=== PATIENT | female | born 1995 | race African-American/Black ===

== ENCOUNTER 2016-09-04 16:35 | Emergency (ER) | payer SELFPAY ==
[2016-09-04 16:40] VITALS: BP 134/71
[2016-09-04 18:47] LABS: APPEARANCE,URINE TURBID; BILIRUBIN,URINE NEGATIVE (NEGATIVE); GLUCOSE, URINE NEGATIVE (NEGATIVE); KETONES,URINE NEGATIVE (NEGATIVE); LEUKOCYTE ESTERASE,URINE NEGATIVE (NEGATIVE); NITRITE,URINE NEGATIVE (NEGATIVE); PROTEIN,URINE NEGATIVE (NEGATIVE); URINE SPECIFIC GRAVITY 1.018; UROBILINOGEN,URINE NEGATIVE mg/dL (<2.0)
--- NOTE | 2016-09-04 19:17 | ER Document Report ---
ED General - General Chief Complaint: Flank Pain Stated Complaint: FLANK PAIN Time Seen by Provider: 09/04/16 17:58 Notes: Patient is a 21-year-old female with chronic left lower adnexal discomfort that is been present ever since she apparently had to have ovarian surgery several years ago who presents with an acute exacerbation of her abdominal pain. States that she was at work and developed a severe, constant, stabbing pain to the affected left lower quadrant. The pain has now resolved and she no longer has any discomfort or concerns. States this feels very similar to prior episodes of similar attacks. She has not seen a primary care doctor followed up with MEDICAL EQUIPMENT TECHNICIAN regarding this recurrent, chronic pain. Any nausea, vomiting or fever. No vaginal bleeding or discharge. No dysuria. TRAVEL OUTSIDE OF THE [place] IN LAST 30 DAYS: No - Related Data Allergies/Adverse Reactions: No Known Allergies Allergy (Verified 12/29/15 14:25) Past Medical History - General Information source: Patient - Social History Smoking Status: Never Smoker Chew tobacco use (# tins/day): No Frequency of alcohol use: None Drug Abuse: None Lives with: Family Family History: Reviewed & Not Pertinent Patient has suicidal ideation: No Patient has homicidal ideation: No Renal/ Medical History: Denies: Hx Peritoneal Dialysis Surgical Hx: Negative - Immunizations Hx Diphtheria, Pertussis, Tetanus Vaccination: Yes Review of Systems - Review of Systems Notes: Constitutional: Negative for fever. HENT: Negative for sore throat. Eyes: Negative for visual changes. Cardiovascular: Negative for chest pain. Respiratory: Negative for shortness of breath. Gastrointestinal: Positive for lower abdominal pain now resolved Genitourinary: Negative for dysuria. Musculoskeletal: Negative for back pain. Skin: Negative for rash. Neurological: Negative for headaches, weakness or numbness. 10 point ROS negative except as marked above and in HPI. Physical Exam - Vital signs Vitals: Temp Pulse Resp BP Pulse Ox 98.7 F 79 20 134/71 H 99 09/04/16 16:38 09/04/16 16:38 09/04/16 16:38 09/04/16 16:38 09/04/16 16:38 Interpretation: Normal Notes: PHYSICAL EXAMINATION: GENERAL: Well-appearing, well-nourished and in no acute distress. HEAD: Atraumatic, normocephalic. EYES: Pupils equal round and reactive to light, extraocular movements intact, sclera anicteric, conjunctiva are normal. ENT: nares patent, oropharynx clear without exudates. Moist mucous membranes. NECK: Normal range of motion, supple without lymphadenopathy LUNGS: Breath sounds clear to auscultation bilaterally and equal. No wheezes rales or rhonchi. HEART: Regular rate and rhythm without murmurs ABDOMEN: Soft, nontender, normoactive bowel sounds. No guarding, no rebound. No masses appreciated. EXTREMITIES: Normal range of motion, no pitting or edema. No cyanosis. NEUROLOGICAL: No focal neurological deficits. Moves all extremities spontaneously and on command. PSYCH: Normal mood, normal affect. SKIN: Warm, Dry, normal turgor, no rashes or lesions noted. Course - Re-evaluation Re-evalutation: 09/04/16 19:14 Patient presents with 2 years of chronic left adnexal and lower abdominal discomfort now resolved. Patient reports that she has intermittent pain in this region approximately 4-5 times daily and this is been unchanged for the last several years. States that she had an episode of pain that was more intense than normal today which prompted to come to the emergency department but has now resolved. Patient is ready had a transvaginal ultrasound as well as a CT scan of her abdomen pelvis with the last 14 months for this complaint. Her abdominal exam at this time is completely benign. She denies any vaginal bleeding or discharge. She is not and the urinalysis is unremarkable. Prior imaging studies have been unremarkable without evidence of acute pathology beyond ovarian cyst identified on the left ovary. I discussed at length with the patient the importance of LIVESTOCK NUTRITION TERRITORY MANAGER follow-up given that this is now a chronic adnexal and lower abdominal pain. I do not believe there is any indication for further abdominal imaging at this time that do not suspect an acute ovarian torsion, tubo-ovarian abscess, acute appendicitis, bowel obstruction, bowel perforation, mesenteric ischemia, acute biliary pathology, acute pancreatitis based on exam clinical history and vitals. Patient is agreeable with need for close follow-up with LIVESTOCK NUTRITION TERRITORY MANAGER. At this time will discharge with return precautions and follow-up recommendations. Verbal discharge instructions given a the bedside and opportunity for questions given. Medication warnings reviewed. Patient is in agreement with this plan and has verbalized understanding of return precautions and the need for primary care follow-up in the next 24-72 hours. - Vital Signs Vital signs: Temp Pulse Resp BP Pulse Ox 98.7 F 79 20 134/71 H 99 09/04/16 16:38 09/04/16 16:38 09/04/16 16:38 09/04/16 16:38 09/04/16 16:38 Discharge - Discharge Clinical Impression: Abdominal pain, chronic, left lower quadrant Condition: Good Disposition: HOME, SELF-CARE Additional Instructions: Please follow-up with LIVESTOCK NUTRITION TERRITORY MANAGER regarding your chronic left lower abdominal pain. Please return if you have worsening of your pain, vomiting, fever greater than 101F, or any other symptoms that are worrisome to you. Forms: Return to Work
== END 2016-09-04 19:42 | disposition home or self-care (01) ==
LOC: ER 16:35
DX: G89.29 Other chronic pain (principal); R10.32 Left lower quadrant pain; Z98.890 Other specified postprocedural states; Z87.42 Personal history of other diseases of the female genital tract
CPT/HCPCS: 81001; 81025; 99284

== ENCOUNTER 2019-01-12 01:15 | Emergency (ER) | payer MEDICAID, OTHER ==
[2019-01-12] MEDS ORDERED: FENTANYL CITRATE INJ/PF 100 MCG/2 ML AMPUL IV ONE (02:07)
[2019-01-12] MEDS ORDERED: ONDANSETRON HCL INJ/PF 4 MG/2 ML SDV IV ONE (02:07)
--- NOTE | 2019-01-12 02:07 | ER Document Report ---
ED GI/ - General Chief Complaint: Lower Abdominal Pain Stated Complaint: LOWER ABDOMINAL PAIN Time Seen by Provider: 01/12/19 01:33 Primary Care Provider: GUME HERRERA MD [Primary Care Provider] - Follow up as needed LORIN TOMLINSON MD [ACTIVE STAFF] - Follow up as needed Notes: Patient is otherwise healthy 23-year-old female presents to the emergency department for left pelvic pain. Patient states she had left pelvic pain for approximately 24 hours. Patient also voices generalized nausea and one episode of diarrhea nonbloody. Patient's denying any vomiting or fever. States intermittent dysuria. Patient's denying any vaginal discharge. Patient takes no daily medications, has no allergies. TRAVEL OUTSIDE OF THE [place] IN LAST 30 DAYS: No - Related Data Allergies/Adverse Reactions: No Known Allergies Allergy (Verified 12/29/15 14:25) Past Medical History - General Information source: Patient - Social History Smoking Status: Never Smoker Family History: Reviewed & Not Pertinent Patient has suicidal ideation: No Patient has homicidal ideation: No Renal/ Medical History: Denies: Hx Peritoneal Dialysis - Immunizations Hx Diphtheria, Pertussis, Tetanus Vaccination: Yes Review of Systems - Review of Systems Constitutional: denies: Fever EENT: No symptoms reported Cardiovascular: No symptoms reported Respiratory: No symptoms reported Gastrointestinal: See HPI Genitourinary: See HPI Female Genitourinary: Last menstrual period - Unsure Musculoskeletal: No symptoms reported Skin: No symptoms reported Hematologic/Lymphatic: No symptoms reported Neurological/Psychological: No symptoms reported Physical Exam - Vital signs Vitals: Temp Pulse Resp BP Pulse Ox 98.2 F 58 L 16 132/81 H 97 01/12/19 01:23 01/12/19 01:23 01/12/19 01:23 01/12/19 01:23 01/12/19 01:23 - Notes Notes: GENERAL: Alert, interacts well. No acute distress. HEAD: Normocephalic, atraumatic. EYES: Pupils equal, round, and reactive to light. Extraocular movements intact. ENT: Oral mucosa moist, tongue midline. NECK: Full range of motion. Supple. Trachea midline. LUNGS: Clear to auscultation bilaterally, no wheezes, rales, or rhonchi. No respiratory distress. HEART: Regular rate and rhythm. No murmur ABDOMEN: Soft, Left pelvic pain noted, otherwise abdominal exam benign. Non- distended. Bowel sounds present in all 4 quadrants. EXTREMITIES: Moves all 4 extremities spontaneously. No edema, normal radial and dorsalis pedis pulses bilaterally. No cyanosis. BACK: no cervical, thoracic, lumbar midline tenderness. No saddle anesthesia, normal distal neurovascular exam. No CVA tenderness noted bilaterally. NEUROLOGICAL: Alert and oriented x3. Normal speech. Cranial nerves II through XII grossly intact PSYCH: Normal affect, normal mood. SKIN: Warm, dry, normal turgor. No rashes or lesions noted. Course - Re-evaluation Re-evalutation: 01/12/19 03:01 Laboratory 01/12/19 01/12/19 01/12/19 02:03 02:10 02:10 WBC 7.0 RBC 4.47 Hgb 14.2 Hct 42.6 MCV 95 MCH 31.8 MCHC 33.3 RDW 12.1 Plt Count 286 Lymph % (Auto) 44.1 [place] % (Auto) 9.5 Eos % (Auto) 1.4 Baso % (Auto) 0.9 Absolute Neuts (auto) 3.1 Absolute Lymphs (auto) 3.1 Absolute Monos (auto) 0.7 Absolute Eos (auto) 0.1 Absolute Basos (auto) 0.1 Seg Neutrophils % 44.1 Sodium 140.9 Potassium 4.8 Chloride 106 Carbon Dioxide 25 Anion Gap 10 BUN 16 Creatinine 0.82 Est GFR ( Amer) > 60 Est GFR (MDRD) Non-Af > 60 Glucose 95 Calcium 10.0 Total Bilirubin 0.8 Direct Bilirubin 0.1 Neonat Total Bilirubin Not Reportable Neonat Direct Bilirubin Not Reportable Neonat Indirect Bili Not Reportable AST 31 ALT 18 Alkaline Phosphatase 45 Total Protein 8.4 H Albumin 4.8 Urine Color YELLOW Urine Appearance CLEAR Urine pH 6.0 Ur Specific [place] 1.028 Urine Protein NEGATIVE Urine Glucose (UA) NEGATIVE Urine Ketones NEGATIVE Urine Blood NEGATIVE Urine Nitrite NEGATIVE Urine Bilirubin NEGATIVE Urine Urobilinogen 2.0 H Ur Leukocyte Esterase NEGATIVE Urine WBC (Auto) 1 Urine RBC (Auto) 3 Squamous Epi Cells Auto 1 Urine Mucus (Auto) MOD Urine Ascorbic Acid 40 H Urine HCG, Qual NEGATIVE Transvaginal US 01/12/19 02:02 IMPRESSION: 3.4 cm likely hemorrhagic cyst in the left ovary. No follow-up imaging is recommended. Reference: Radiology 2010 Nov;256(3):943-54 Upon repeat assessment patient is sleeping, easily arousable to verbal stimuli. Patient voices she no longer has any pain. I discussed with patient diagnosis of left ovarian cyst. Have also discussed following up with CLASSIFIED COPY CONTROL CLERK and primary care doctor. Patient remains hemodynamically stable, stable for discharge. - Vital Signs Vital signs: Temp Pulse Resp BP Pulse Ox 98.2 F 58 L 16 132/81 H 97 01/12/19 01:23 01/12/19 01:23 01/12/19 01:23 01/12/19 01:23 01/12/19 01:23 - Laboratory Result Diagrams: 01/12/19 02:10 01/12/19 02:10 Laboratory results interpreted by me: 01/12/19 01/12/19 02:03 02:10 Total Protein 8.4 H Urine Urobilinogen 2.0 H Urine Ascorbic Acid 40 H Discharge - Discharge Clinical Impression: Ovarian cyst Qualifiers: Laterality: left Qualified Code(s): N83.202 - Unspecified ovarian cyst, left side Condition: Stable Disposition: HOME, SELF-CARE Instructions: Ovarian Cyst ([facility]) Additional Instructions: As we discussed you have been seen and treated in the emergency department for an ovarian cyst. Please make sure he follow-up with your primary care provider and CLASSIFIED COPY CONTROL CLERK in the next 12 to 24 hours. Phone numbers for an CLASSIFIED COPY CONTROL CLERK provider in our area will be in this packet. Please return to the emergency room for any concerns. Forms: Return to Work Referrals: GUME HERRERA MD [Primary Care Provider] - Follow up as needed LORIN TOMLINSON MD [ACTIVE STAFF] - Follow up as needed
[2019-01-12 02:29] LABS: ABSOLUTE BASOPHILS # (AUTO) 0.1 10^3/uL (0.0-0.2); ABSOLUTE EOSINOPHILS # (AUTO) 0.1 10^3/uL (0.0-0.6); ABSOLUTE LYMPHOCYTES (AUTO) 3.1 10^3/uL (0.5-4.7); ABSOLUTE MONOCYTES (AUTO) 0.7 10^3/uL (0.1-1.4); ABSOLUTE NEUT (AUTO) 3.1 10^3/uL (1.7-8.2); BASOPHILS % (AUTO) 0.9 % (0-2); EOSINOPHILS % (AUTO) 1.4 % (0-6); HEMATOCRIT 42.6 % (36.0-47.0); HEMOGLOBIN 14.2 g/dL (12.0-15.5); LYMPHOCYTES % (AUTO) 44.1 % (13-45); MEAN CORPUSCULAR HEMOGLOBIN 31.8 pg (27.0-33.4); MEAN CORPUSCULAR HGB CONC 33.3 g/dL (32.0-36.0); MEAN CORPUSCULAR VOLUME 95 fl (80-97); MONOCYTES % (AUTO) 9.5 % (3-13); PLATELET COUNT 286 10^3/uL (150-450); RED BLOOD COUNT 4.47 10^6/uL (3.72-5.28); RED CELL DISTRIBUTION WIDTH 12.1 % (11.5-14.0); SEGMENTED NEUTROPHILS % (AUTO) 44.1 % (42-78); TOTAL CELLS COUNTED % (AUTO) 100 %
[2019-01-12 02:36] LABS: ALBUMIN 4.8 g/dL (3.5-5.0); ALKALINE PHOSPHATASE 45 U/L (38-126); ANION GAP 10 (5-19); ASPARTATE AMINO TRANSFERASE 31 U/L (14-36); BILIRUBIN,DIRECT 0.1 mg/dL (0.0-0.4); BILIRUBIN,TOTAL 0.8 mg/dL (0.2-1.3); BLOOD UREA NITROGEN 16 mg/dL (7-20); CARBON DIOXIDE 25 mmol/L (22-30); CHLORIDE 106 mmol/L (98-107); GLUCOSE 95 mg/dL (75-110); POTASSIUM 4.8 mmol/L (3.6-5.0); TOTAL PROTEIN 8.4 g/dL (6.3-8.2)
[2019-01-12 02:55] LABS: APPEARANCE,URINE CLEAR; BILIRUBIN,URINE NEGATIVE (NEGATIVE); COLOR,URINE YELLOW; GLUCOSE, URINE NEGATIVE (NEGATIVE); KETONES,URINE NEGATIVE (NEGATIVE); LEUKOCYTE ESTERASE,URINE NEGATIVE (NEGATIVE); NITRITE,URINE NEGATIVE (NEGATIVE); PROTEIN,URINE NEGATIVE (NEGATIVE); URINE SPECIFIC GRAVITY 1.028
--- NOTE | 2019-01-12 02:57 | RADIOLOGY REPORT (SQ) ---
US PELVIS EXAM DATE: 01/12/2019 2:02 AM CDT HISTORY: Left-sided pelvic pain. COMPARISON: Ultrasound dated 07/08/2015. TECHNIQUE: Grayscale, color Doppler, and spectral Doppler ultrasound images of the pelvis were obtained. FINDINGS: The uterus is anteverted and measures 7.4 x 4.1 x 3.4 cm. The endometrium is 4 mm in thickness. The cervix is 3 cm in length and contains a small amount of fluid. Both ovaries are normal in size and contain normal follicles, with the right ovary measuring 3.1 cm, and the left ovary measuring 4.6 cm. There is a 3.4 cm likely hemorrhagic cyst in the left ovary. Normal color Doppler blood flow is seen in both ovaries. No pelvic free fluid. IMPRESSION: 3.4 cm likely hemorrhagic cyst in the left ovary. No follow-up imaging is recommended. Reference: Radiology 2010 Nov;256(3):946-85
[2019-01-12 03:45] VITALS: BP 136/79
== END 2019-01-12 03:45 | disposition home or self-care (01) ==
LOC: ER 01:15
DX: N83.202 Unspecified ovarian cyst, left side (principal); R10.2 Pelvic and perineal pain; R11.0 Nausea; R19.7 Diarrhea, unspecified
CPT/HCPCS: 36415; 85025; 81025; 80053; 81001; 76830; 93976; J3010; J2405; 96374; 96375; 99284

== ENCOUNTER 2019-12-13 12:37 | Emergency (ER) | payer SELFPAY ==
[2019-12-13] MEDS ORDERED: ACETAMINOPHEN 325 MG TABLET PO ONE (13:17)
--- NOTE | 2019-12-13 14:15 | ER Document Report ---
ED Medical Screen (RME) - General Chief Complaint: Flu Symptoms Stated Complaint: BODY ACHES/FEVER/CHILLS Time Seen by Provider: 12/13/19 14:11 Primary Care Provider: GUME HERRERA MD [Primary Care Provider] - Follow up as needed Mode of Arrival: Wheelchair Information source: Patient Notes: 24-year-old female presents to ED for complaint of upset stomach she states it feels like there is a swollen her stomach about every hour and then she either has a lot of gas or she has diarrhea still. She also had fevers chills cough congestion headache body aches states she did have a sore throat but that is much better. She did have a fever over 102 and she was given 975 of Tylenol her temperature now is 99.9 orally. Will order flu strep chest x-ray urinalysis and blood. She states she has a Nexplanon so she does not get menstrual cycles. Only medical history is an ovarian cyst. Denies use of alcohol tobacco or drugs. I have greeted and performed a rapid initial assessment of this patient. A comprehensive ED assessment and evaluation of the patient, analysis of test results and completion of medical decision making process will be conducted by an additional ED providers. TRAVEL OUTSIDE OF THE [place] IN LAST 30 DAYS: No - Related Data Allergies/Adverse Reactions: No Known Allergies Allergy (Verified 12/29/15 14:25) Past Medical History Renal/ Medical History: Denies: Hx Peritoneal Dialysis - Immunizations Hx Diphtheria, Pertussis, Tetanus Vaccination: Yes Physical Exam - Vital signs Vitals: Temp Pulse Resp BP Pulse Ox 102.3 F H 108 H 20 142/78 H 100 12/13/19 13:16 12/13/19 13:16 12/13/19 13:16 12/13/19 13:16 12/13/19 13:16 Course - Vital Signs Vital signs: Temp Pulse Resp BP Pulse Ox 102.3 F H 108 H 20 142/78 H 100 12/13/19 13:16 12/13/19 13:16 12/13/19 13:16 12/13/19 13:16 12/13/19 13:16 Doctor's Discharge - Discharge Referrals: GUME HERRERA MD [Primary Care Provider] - Follow up as needed
--- NOTE | 2019-12-13 15:57 | ER Document Report ---
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 Patient states that she was at work yesterday developed extreme tiredness, nasal congestion, no sore throat no chest pain no shortness of breath. Patient developed mild epigastric abdominal discomfort. Patient states she has been having multiple episodes of diarrhea. Patient developed a fever last night. No dysuria ROS: See HPI - all other systems were reviewed and are otherwise negative Constitutional: + fever Eyes: no drainage, no blurred vision ENT: no runny nose, no sore throat Cardiovascular: no chest pain Resp: no SOB, no cough GI: no vomiting, + diarrhea, + abdominal pain : no dysuria Integumentary: no rash Allergy: no hives Musculoskeletal: no extremity pain or swelling Neurological: no numbness/tingling, no weakness MEDICATIONS: I agree with the patient medications as charted by the RN. ALLERGIES: I agree with the allergies as charted by the RN. PAST MEDICAL HISTORY/PAST SURGICAL HISTORY: Reviewed and agree as charted by RN. SOCIAL HISTORY: Reviewed and agree as charted by RN. FAMILY HISTORY: No significant familial comorbid conditions directly related to patient complaint EXAM: Reviewed vital signs as charted by RN. CONSTITUTIONAL: Alert and oriented and responds appropriately to questions. Well-appearing; well-nourished HEAD: Normocephalic; atraumatic EYES: PERRL; Conjunctivae clear, sclerae non-icteric ENT: normal nose; no rhinorrhea; moist mucous membranes; pharynx without lesions noted, no uvula edema or deviation, no tonsillar hypertrophy, phonation normal NECK: Supple without meningismus; non-tender; no cervical lymphadenopathy, no masses CARD: Mild tachycardia; no murmurs, no clicks, no rubs, no gallops; symmetric distal pulses RESP: Normal chest excursion without splinting or tachypnea; breath sounds clear and equal bilaterally; no wheezes, no rhonchi, no rales, pulse oximetry 100% on room air not hypoxic ABD/GI: Normal bowel sounds; non-distended; soft, mild tenderness in the epigastric region on palpation, no rebound, no guarding; no palpable organomegaly or masses. BACK: The back appears normal and is non-tender to palpation, there is no CVA tenderness EXT: Normal ROM in all joints; non-tender to palpation; no cyanosis, no effusions, no edema SKIN: Normal color for age and race; warm; dry; good turgor; no acute lesions noted NEURO: Moves all extremities equally; Motor and sensory function intact PSYCH: The patient's mood and manner are appropriate. Grooming and personal hygiene are appropriate. MDM: 24-year-old female presenting for evaluation of multiple complaints, fever epigastric pain diarrhea. Initial screening labs placed via triage process. She has no cough chest pain shortness of breath or sore throat. Patient does have reproducible abdominal pain on exam. Patient was febrile here. She has no lower abdominal discomfort at this time. Patient states that the last time she had discomfort like this she did have a UTI. Differential is large. TRAVEL OUTSIDE OF THE [place] IN LAST 30 DAYS: No - Related Data Allergies/Adverse Reactions: No Known Allergies Allergy (Verified 12/29/15 14:25) Past Medical History - General Information source: Patient - Social History Smoking Status: Unknown if Ever Smoked Family History: Reviewed & Not Pertinent Renal/ Medical History: Denies: Hx Peritoneal Dialysis - Immunizations Hx Diphtheria, Pertussis, Tetanus Vaccination: Yes Physical Exam - Vital signs Vitals: Temp Pulse Resp BP Pulse Ox 102.3 F H 108 H 20 142/78 H 100 12/13/19 13:16 12/13/19 13:16 12/13/19 13:16 12/13/19 13:16 12/13/19 13:16 Course - Re-evaluation Re-evalutation: 12/13/19 18:[address] does not show acute emergent abnormalities. Lab work is nonaction able. Urine appears to be a dirty specimen, urine culture has been added and she has no complaints of dysuria. Patient did have a fever. She will be a person under investigation for COVID-19. She does feel like the last time she had abdominal pain like that she did have a UTI though. Given this I will place the patient on Keflex - Vital Signs Vital signs: Temp Pulse Resp BP Pulse Ox 99.9 F 108 H 20 142/78 H 100 12/13/19 16:40 12/13/19 13:16 12/13/19 13:16 12/13/19 13:16 12/13/19 13:16 - Laboratory Result Diagrams: 12/13/19 15:40 12/13/19 15:40 Laboratory results interpreted by me: 12/13/19 12/13/19 12/13/19 15:40 15:40 15:40 Lymph % (Auto) 10.1 L Seg Neutrophils % 80.5 H Sodium 136.0 L Total Bilirubin 1.4 H Urine Protein 100 H Urine Ketones 20 H Urine Blood MODERATE H Discharge - Discharge Clinical Impression: Fever in adult, Person under investigation for COVID-19 UTI (urinary tract infection) Qualifiers: Urinary tract infection type: acute cystitis Hematuria presence: with hematuria Qualified Code(s): N30.01 - Acute cystitis with hematuria Condition: Stable Disposition: HOME, SELF-CARE Instructions: Urinary Tract Infection, Child ([facility]), COVID-19 Guidance for Persons Under Investigation Additional Instructions: Your lab work and CT imaging did not show acute findings although there is a question of a possible urinary infection. Take the Keflex to treat this. You are considered a person under investigation for COVID-19 at this time self quarantine at home for the next 2 to 5 days. Lab results for COVID-19 testing usually take 2 to 5 days, you will receive a call from the hospital about your results. Symptomatic treatment for fevers at home with Motrin Tylenol hydrate well. Prescriptions: Cephalexin Monohydrate [Keflex 500 mg Capsule] 500 mg PO Q6H 7 Days #28 capsule Forms: Return to Work Referrals: GUME HERRERA MD [Primary Care Provider] - Follow up as needed
[2019-12-13 16:09] LABS: APPEARANCE,URINE CLOUDY; BILIRUBIN,URINE NEGATIVE (NEGATIVE); COLOR,URINE AMBER; GLUCOSE, URINE NEGATIVE (NEGATIVE); KETONES,URINE 20 mg/dL (NEGATIVE); LEUKOCYTE ESTERASE,URINE NEGATIVE (NEGATIVE); NITRITE,URINE NEGATIVE (NEGATIVE); PROTEIN,URINE 100 mg/dL (NEGATIVE); URINE SPECIFIC GRAVITY 1.035; UROBILINOGEN,URINE NEGATIVE mg/dL (<2.0)
[2019-12-13 16:11] LABS: ABSOLUTE LYMPHOCYTES (AUTO) 0.9 10^3/uL (0.5-4.7); ABSOLUTE MONOCYTES (AUTO) 0.8 10^3/uL (0.1-1.4); ABSOLUTE NEUT (AUTO) 7.2 10^3/uL (1.7-8.2); BASOPHILS % (AUTO) 0.2 % (0-2); HEMATOCRIT 40.9 % (36.0-47.0); HEMOGLOBIN 14.1 g/dL (12.0-15.5); LYMPHOCYTES % (AUTO) 10.1 % (13-45); MEAN CORPUSCULAR HEMOGLOBIN 32.2 pg (27.0-33.4); MEAN CORPUSCULAR HGB CONC 34.5 g/dL (32.0-36.0); MEAN CORPUSCULAR VOLUME 94 fl (80-97); MONOCYTES % (AUTO) 9.2 % (3-13); PLATELET COUNT 282 10^3/uL (150-450); RED BLOOD COUNT 4.38 10^6/uL (3.72-5.28); RED CELL DISTRIBUTION WIDTH 12.2 % (11.5-14.0); SEGMENTED NEUTROPHILS % (AUTO) 80.5 % (42-78); TOTAL CELLS COUNTED % (AUTO) 100 %; WHITE BLOOD COUNT 8.9 10^3/uL (4.0-10.5)
--- NOTE | 2019-12-13 16:18 | RADIOLOGY REPORT (SQ) ---
EXAM DESCRIPTION: CHEST SINGLE VIEW IMAGES COMPLETED DATE/TIME: 12/13/2019 4:08 pm REASON FOR STUDY: cough congestion COMPARISON: 05/23/2015 EXAM PARAMETERS: NUMBER OF VIEWS: One view. TECHNIQUE: Single frontal radiographic view of the chest acquired. RADIATION DOSE: NA LIMITATIONS: None. FINDINGS: LUNGS AND PLEURA: No opacities, masses or pneumothorax. No pleural effusion. MEDIASTINUM AND HILAR STRUCTURES: No masses. Contour normal. HEART AND VASCULAR STRUCTURES: Heart normal in size. Normal vasculature. BONES: No acute findings. HARDWARE: None in the chest. OTHER: No other significant finding. IMPRESSION: NO ACUTE RADIOGRAPHIC FINDING IN THE CHEST. TECHNICAL DOCUMENTATION: JOB ID: [id number] 2010 [employer]- All Rights Reserved Reading location - IP/workstation name: [email or web address]
[2019-12-13 16:20] LABS: A TYPE INFLUENZA AG NEGATIVE (NEGATIVE); B INFLUENZA AG NEGATIVE (NEGATIVE)
[2019-12-13 16:26] LABS: ALBUMIN 4.5 g/dL (3.5-5.0); ALKALINE PHOSPHATASE 48 U/L (38-126); ANION GAP 8 (5-19); ASPARTATE AMINO TRANSFERASE 24 U/L (14-36); BILIRUBIN,DIRECT 0.2 mg/dL (0.0-0.4); BILIRUBIN,TOTAL 1.4 mg/dL (0.2-1.3); BLOOD UREA NITROGEN 11 mg/dL (7-20); CALCIUM 9.8 mg/dL (8.4-10.2); CARBON DIOXIDE 26 mmol/L (22-30); CHLORIDE 102 mmol/L (98-107); GLUCOSE 97 mg/dL (75-110); POTASSIUM 4.5 mmol/L (3.6-5.0); TOTAL PROTEIN 7.8 g/dL (6.3-8.2)
--- NOTE | 2019-12-13 18:27 | RADIOLOGY REPORT (SQ) ---
EXAM DESCRIPTION: CT ABD/PELVIS WITH IV ONLY IMAGES COMPLETED DATE/TIME: 12/13/2019 6:05 pm REASON FOR STUDY: abd pain fever COMPARISON: None. TECHNIQUE: CT scan of the abdomen and pelvis performed using helical scanning technique with dynamic intravenous contrast injection. No oral contrast. Images reviewed with lung, soft tissue, and bone windows. Reconstructed coronal and sagittal MPR images reviewed. Delayed images for evaluation of the urinary system also acquired. All images stored on PACS. All CT scanners at this facility use dose modulation, iterative reconstruction, and/or weight based d osing when appropriate to reduce radiation dose to as low as reasonably achievable (ALARA). [facility]: Dose Right [facility]: CareDose [facility]: Dose Right [facility]: Teradose 4D [facility]: [employer] CONTRAST TYPE AND DOSE: contrast/concentration: Isovue 350.00 mmol/ml; Total Contrast Delivered: 73. 0 ml; Total Saline Delivered: 56.0 ml RENAL FUNCTION: None required. The patient is less than 50 years old. RADIATION DOSE: CT Rad equipment meets quality standard of care and radiation dose reduction techniq ues were employed. CTDIvol: 5.6 - 7.1 mGy. DLP: 687 mGy-cm.. LIMITATIONS: None. FINDINGS: LOWER CHEST: No significant findings. No nodules or infiltrates. LIVER: Normal size. No masses. No dilated ducts. SPLEEN: Normal size. No focal lesions. PANCREAS: No masses. No significant calcifications. No adjacent inflammation or peripancreatic fluid collections. Pancreatic duct not dilated. GALLBLADDER: No identified stones by CT criteria. No inflammatory changes to suggest cholecystitis. ADRENAL GLANDS: No significant masses or asymmetry. RIGHT KIDNEY AND URETER: No solid masses. No significant calcifications. No hydronephrosis or hyd roureter. LEFT KIDNEY AND URETER: No solid masses. No significant calcifications. No hydronephrosis or hydr oureter. AORTA AND VESSELS: No aneurysm. No dissection. Renal arteries, SMA, celiac without stenosis. RETROPERITONEUM: No retroperitoneal adenopathy, hemorrhage or masses. BOWEL AND PERITONEAL CAVITY: No masses or inflammatory changes. No free fluid or peritoneal masses. APPENDIX: Normal. PELVIS: No mass. No free fluid. Normal bladder. ABDOMINAL WALL: No masses. No hernias. BONES: No significant or acute findings. OTHER: No other significant finding. IMPRESSION: NO SIGNIFICANT OR ACUTE FINDING IN THE ABDOMEN OR PELVIS ON CT SCAN WITH IV CONTRAST. TECHNICAL DOCUMENTATION: JOB ID: [id number] Quality ID # [id number]: Final reports with documentation of one or more dose reduction techniques (e.g., Au tomated exposure control, adjustment of the mA and/or kV according to patient size, use of iterative reconstruction technique) 2010 [employer]- All Rights Reserved Reading location - IP/workstation name: [email or web address]
[2019-12-13] MEDS ORDERED: CEFTRIAXONE 1 GM/D5W RTU 1 GM/50 ML RTUPB IV ONE (18:35)
[2019-12-13] MEDS ORDERED: DICYCLOMINE HCL INJ 20 MG/2 ML AMPULE IM ONE (18:52)
[2019-12-13 19:43] VITALS: BP 156/98
== END 2019-12-13 19:44 | disposition home or self-care (01) ==
LOC: ER 12:37
DX: N30.01 Acute cystitis with hematuria (principal); M79.10 Myalgia, unspecified site; R50.9 Fever, unspecified; R09.81 Nasal congestion; Z20.828 Contact with and (suspected) exposure to other viral communicable diseases
CPT/HCPCS: 99285; 96365; 36415; 87070; 87086; 87880; 83690; 84703; 85025; 87635; 80053; 81001; 87804; 71045; 74177; J0500; J0696; C9803